=== PATIENT | male | born 1930 | race Caucasian/White ===

== ENCOUNTER 2017-12-29 11:21 | Emergency (ER) | payer OTHER ==
[2017-12-29] MEDS: ASPIRIN 325 MG TAB PO (12:06)
[2017-12-29 12:08] LABS: ADD MAN DIFF? NO
[2017-12-29 12:12] LABS: WHITE BLOOD COUNT 7.7 10^3/ul (4.8-10.8)
[2017-12-29 12:12] LABS: BASOPHIL # 0.1 10^3/ul (0.0-0.1); BASOPHILS % 0.8 % (0.0-2.0); EOSINOPHILS # 0.2 10^3/ul (0.0-0.5); EOSINOPHILS % 2.9 % (0.0-7.0); HEMATOCRIT 38.4 % (42.0-52.0); HEMOGLOBIN 11.4 g/dl (14.0-18.0); LYMPHOCYTES # 1.3 10^3/ul (0.8-2.9); LYMPHOCYTES % 17.1 % (15.0-51.0); MEAN CORPUSCULAR HEMOGLOBIN 24.1 pg (29.0-33.0); MEAN CORPUSCULAR HGB CONC 29.7 g/dl (32.0-37.0); MEAN PLATELET VOLUME 10.5 fl (7.4-10.4); MONOCYTE # 0.6 10^3/ul (0.3-0.9); MONOCYTES % 8.1 % (0.0-11.0); NEUTROPHIL # 5.4 10^3/ul (1.6-7.5); NEUTROPHILS % 70.7 % (39.0-77.0); PLATELET COUNT 250 10^3/UL (140-415); RED BLOOD COUNT 4.74 10^6/ul (4.70-6.10); RED CELL DISTRIBUTION WIDTH 16.9 % (11.5-14.5)
[2017-12-29 12:30] LABS: ANION GAP 11 (8-16); BLOOD UREA NITROGEN 35 mg/dl (7-20); CALCIUM 9.2 mg/dl (8.4-10.2); CARBON DIOXIDE 31 mmol/L (21-31); CHLORIDE 104 mmol/L (97-110); CREATININE 1.11 mg/dl (0.61-1.24); GLUCOSE 112 mg/dl (70-220); POTASSIUM 4.1 mmol/L (3.5-5.1); SODIUM 142 mmol/L (135-144)
[2017-12-29 12:33] LABS: INR 0.99; PROTIME 13.2 Sec (11.9-14.9)
[2017-12-29 12:34] LABS: PARTIAL THROMBOPLASTIN TIME 27.5 Sec (25.0-35.0)
[2017-12-29 12:37] LABS: D-DIMER 1011.14 ng/ml (<460)
[2017-12-29 12:41] LABS: B-TYPE NATRIURETIC PEPTIDE 1860 PG/ML (0-450); TROPONIN-I < 0.012 ng/ml (0.000-0.120)
[2017-12-29] MEDS: SOD CHLORIDE 0.9% 100 ML (14:18)
[2017-12-29] MEDS: IOHEXOL 100 ML (14:18)
[2017-12-29 16:19] LABS: TROPONIN-I < 0.012 ng/ml (0.000-0.120)
== END 2017-12-29 16:48 | disposition home or self-care (01) ==
LOC: E/R 11:21
DX: R07.9 Chest pain, unspecified (principal); I10 Essential (primary) hypertension; E11.9 Type 2 diabetes mellitus without complications; Z79.82 Long term (current) use of aspirin; Z79.84 Long term (current) use of oral hypoglycemic drugs; Z95.0 Presence of cardiac pacemaker; Z98.61 Coronary angioplasty status
CPT/HCPCS: 36415; 71045; 71275; 80048; 83880; 84484; 85025; 85378; 85610; 85730; 93005; 99285-25

== ENCOUNTER 2018-01-26 10:18 | Observation (INO) | payer OTHER ==
[2018-01-26 13:05] LABS: ADD MAN DIFF? NO
[2018-01-26 13:13] LABS: WHITE BLOOD COUNT 8.1 10^3/ul (4.8-10.8)
[2018-01-26 13:13] LABS: BASOPHIL # 0.1 10^3/ul (0.0-0.1); BASOPHILS % 0.6 % (0.0-2.0); EOSINOPHILS # 0.2 10^3/ul (0.0-0.5); EOSINOPHILS % 2.5 % (0.0-7.0); HEMATOCRIT 36.3 % (42.0-52.0); HEMOGLOBIN 10.7 g/dl (14.0-18.0); LYMPHOCYTES # 1.1 10^3/ul (0.8-2.9); LYMPHOCYTES % 14.1 % (15.0-51.0); MEAN CORPUSCULAR HEMOGLOBIN 24.4 pg (29.0-33.0); MEAN CORPUSCULAR HGB CONC 29.5 g/dl (32.0-37.0); MEAN CORPUSCULAR VOLUME 82.7 fl (82.0-101.0); MEAN PLATELET VOLUME 10.2 fl (7.4-10.4); MONOCYTE # 0.7 10^3/ul (0.3-0.9); MONOCYTES % 8.2 % (0.0-11.0); NEUTROPHILS % 74.4 % (39.0-77.0); PLATELET COUNT 226 10^3/UL (140-415); RED BLOOD COUNT 4.39 10^6/ul (4.70-6.10); RED CELL DISTRIBUTION WIDTH 16.8 % (11.5-14.5)
[2018-01-26 13:30] LABS: ANION GAP 10 (8-16); BLOOD UREA NITROGEN 31 mg/dl (7-20); CALCIUM 9.8 mg/dl (8.4-10.2); CARBON DIOXIDE 30 mmol/L (21-31); CHLORIDE 105 mmol/L (97-110); CREATININE 1.09 mg/dl (0.61-1.24); GLUCOSE 113 mg/dl (70-220); SODIUM 141 mmol/L (135-144)
[2018-01-26 13:32] LABS: INR 0.99; PROTIME 13.2 Sec (11.9-14.9)
[2018-01-26 13:33] LABS: PARTIAL THROMBOPLASTIN TIME 28.3 Sec (23.0-35.0)
[2018-01-26 13:42] LABS: B-TYPE NATRIURETIC PEPTIDE 2270 PG/ML (0-450); TROPONIN-I < 0.012 ng/ml (0.000-0.120)
[2018-01-26] MEDS: FUROSEMIDE 20 MG INJ IV ×2 (15:38→17:23)
[2018-01-26] MEDS ORDERED: NACL 0.9% 3 ML SYG IV (16:00)
[2018-01-26] MEDS ORDERED: ONDANSETRON 4 MG INJ IV (16:00)
[2018-01-26] MEDS ORDERED: DOCUSATE SODIUM 100 MG CAP PO (16:00)
[2018-01-26] MEDS ORDERED: ACETAMINOPHEN 325 MG TAB PO (16:00)
[2018-01-26] MEDS ORDERED: ALBUTEROL HFA 8 GM INHALER INH ×2 (16:00→20:00)
[2018-01-26] MEDS ORDERED: GLUCAGON 1 MG INJ IM (16:30)
[2018-01-26] MEDS ORDERED: DEXTROSE 50% 50 ML SYRINGE IV ×2 (16:30)
[2018-01-26] MEDS ORDERED: GLUCOSE GEL 15 GRAM TUBE PO ×2 (16:30)
[2018-01-26] MEDS ORDERED: GLUCOSE GEL 15 GRAM TUBE BUCCAL (16:30)
[2018-01-26] MEDS: METOPROLOL (XL) 25 MG TAB PO (17:03)
[2018-01-26] MEDS: PANTOPRAZOLE (EC) 40 MG TAB PO (17:03)
[2018-01-26] MEDS: LOSARTAN 25 MG TAB PO (17:03)
[2018-01-26] MEDS: CLOPIDOGREL 75 MG TAB PO (17:03)
[2018-01-26] MEDS: INSULIN ASPART [NOVOLOG] 3 ML PEN SC ×2 (18:00→20:27)
[2018-01-26] MEDS: ASPIRIN 81 MG TAB PO (19:03)
[2018-01-26] MEDS: ATORVASTATIN 20 MG TAB PO (20:27)
[2018-01-27] MEDS: ACCU-CHEK XX (02:00)
[2018-01-27] MEDS: PANTOPRAZOLE (EC) 40 MG TAB PO (05:57)
[2018-01-27 07:05] LABS: ANION GAP 10 (8-16); BLOOD UREA NITROGEN 33 mg/dl (7-20); CALCIUM 9.3 mg/dl (8.4-10.2); CARBON DIOXIDE 32 mmol/L (21-31); CHLORIDE 104 mmol/L (97-110); CREATININE 1.07 mg/dl (0.61-1.24); GLUCOSE 103 mg/dl (70-220); POTASSIUM 3.7 mmol/L (3.5-5.1); SODIUM 142 mmol/L (135-144)
[2018-01-27] MEDS: INSULIN ASPART [NOVOLOG] 3 ML PEN SC (07:55)
[2018-01-27] MEDS: ASPIRIN 81 MG TAB PO (08:04)
[2018-01-27] MEDS: CLOPIDOGREL 75 MG TAB PO (08:04)
[2018-01-27] MEDS: LOSARTAN 25 MG TAB PO (08:05)
[2018-01-27] MEDS: METOPROLOL (XL) 25 MG TAB PO (08:05)
[2018-01-27] MEDS: ENOXAPARIN 40 MG/0.4 ML SYG SC (08:50)
[2018-01-27] MEDS: FUROSEMIDE 20 MG INJ IV (09:25)
== END 2018-01-27 11:19 | disposition home or self-care (01) ==
LOC: E/R 10:18 → TEL 14:57
DX: I11.0 Hypertensive heart disease with heart failure (principal); I50.23 Acute on chronic systolic (congestive) heart failure; I25.10 Atherosclerotic heart disease of native coronary artery without angina pectoris; K21.9 Gastro-esophageal reflux disease without esophagitis; E11.9 Type 2 diabetes mellitus without complications; I25.2 Old myocardial infarction; Z79.84 Long term (current) use of oral hypoglycemic drugs; Z79.899 Other long term (current) drug therapy; Z95.5 Presence of coronary angioplasty implant and graft; Z79.82 Long term (current) use of aspirin; Z79.02 Long term (current) use of antithrombotics/antiplatelets
CPT/HCPCS: 36415; 71045; 80048; 82962; 83880; 84484; 85025; 85610; 85730; 93005; 93306; 99285-25; G0378

== ENCOUNTER 2018-10-22 10:01 | Inpatient (IN) | payer OTHER ==
[2018-10-22] MEDS: ALBUTEROL 0.5% (NEB) 2.5 MG/0.5 ML AMP INH (10:26)
[2018-10-22] MEDS: IPRATROPIUM (NEB) 0.5 MG/2.5 ML AMP INH (10:26)
[2018-10-22 11:08] LABS: ADD MAN DIFF? NO
[2018-10-22 11:11] LABS: WHITE BLOOD COUNT 6.6 10^3/ul (4.8-10.8)
[2018-10-22 11:12] LABS: ABNORMAL IP MESSAGE 1; BASOPHILS % 0.5 % (0.0-2.0); EOSINOPHILS # 0.2 10^3/ul (0.0-0.5); EOSINOPHILS % 2.7 % (0.0-7.0); HEMATOCRIT 37.6 % (42.0-52.0); HEMOGLOBIN 10.8 g/dl (14.0-18.0); LYMPHOCYTES # 0.8 10^3/ul (0.8-2.9); LYMPHOCYTES % 12.1 % (15.0-51.0); MEAN CORPUSCULAR HEMOGLOBIN 22.4 pg (29.0-33.0); MEAN CORPUSCULAR HGB CONC 28.7 g/dl (32.0-37.0); MEAN CORPUSCULAR VOLUME 77.8 fl (82.0-101.0); MEAN PLATELET VOLUME 10.7 fl (7.4-10.4); MONOCYTE # 0.8 10^3/ul (0.3-0.9); MONOCYTES % 12.1 % (0.0-11.0); NEUTROPHIL # 4.8 10^3/ul (1.6-7.5); NEUTROPHILS % 72.1 % (39.0-77.0); PLATELET COUNT 228 10^3/UL (140-415); POSITIVE DIFF @See below; RED BLOOD COUNT 4.83 10^6/ul (4.70-6.10); RED CELL DISTRIBUTION WIDTH 17.8 % (11.5-14.5)
[2018-10-22 11:13] LABS: ADD UMIC NO; UR ASCORBIC ACID NEGATIVE (NEGATIVE); UR BILIRUBIN (Dip) NEGATIVE (NEGATIVE); UR BLOOD (Dip) NEGATIVE (NEGATIVE); UR CLARITY SLIGHTLY CLOUDY (CLEAR); UR COLOR YELLOW (YELLOW); UR GLUCOSE (Dip) NEGATIVE (NEGATIVE); UR KETONES (Dip) NEGATIVE (NEGATIVE); UR LEUKOCYTE ESTERASE (Dip) NEGATIVE Leu/ul (NEGATIVE); UR NITRITE (Dip) NEGATIVE (NEGATIVE); UR RBC 0 /HPF (0-5); UR SPECIFIC GRAVITY (Dip) 1.008 (1.003-1.030); UR TOTAL PROTEIN (Dip) NEGATIVE (NEGATIVE); UR UROBILINOGEN (Dip) NEGATIVE (NEGATIVE); UR WBC 0 /HPF (0-5)
[2018-10-22] MEDS: METHYLPREDNISOLONE 125 MG INJ IV (11:17)
[2018-10-22 11:31] LABS: ALANINE AMINOTRANSFERASE 26 IU/L (13-69); ALBUMIN 4.3 g/dl (3.3-4.9); ALBUMIN/GLOBULIN RATIO 1.07; ALKALINE PHOSPHATASE 53 IU/L (42-121); ANION GAP 9 (5-13); ASPARTATE AMINO TRANSFERASE 31 IU/L (15-46); BILIRUBIN,INDIRECT 0.8 mg/dl (0-1.1); BILIRUBIN,TOTAL 0.8 mg/dl (0.2-1.3); BLOOD UREA NITROGEN 37 mg/dl (7-20); CALCIUM 9.3 mg/dl (8.4-10.2); CARBON DIOXIDE 34 mmol/L (21-31); CHLORIDE 97 mmol/L (97-110); CREATINE KINASE 88 IU/L (23-200); CREATININE 1.44 mg/dl (0.61-1.24); GLUCOSE 121 mg/dl (70-220); POTASSIUM 3.4 mmol/L (3.5-5.1); SODIUM 140 mmol/L (135-144); TOTAL PROTEIN 8.3 g/dl (6.1-8.1)
[2018-10-22 11:33] LABS: INR 1.11; PROTIME 14.4 Sec (11.9-14.9); PT RATIO 1.1
[2018-10-22 11:34] LABS: PARTIAL THROMBOPLASTIN TIME 26.6 Sec (23.0-35.0)
[2018-10-22 11:43] LABS: B-TYPE NATRIURETIC PEPTIDE 5070 PG/ML (0-450); CK INDEX 1.5; CK-MB 1.31 ng/ml (0.0-2.4); TROPONIN-I 0.042 ng/ml (0.000-0.120)
[2018-10-22] MEDS ORDERED: ONDANSETRON 4 MG INJ IV ×2 (12:30)
[2018-10-22] MEDS ORDERED: ACETAMINOPHEN 325 MG TAB PO ×2 (12:30)
[2018-10-22] MEDS ORDERED: FUROSEMIDE 40 MG INJ IV (12:30)
[2018-10-22] MEDS: PANTOPRAZOLE (EC) 40 MG TAB PO (14:00)
[2018-10-22] MEDS: METOPROLOL (XL) 25 MG TAB PO (14:00)
[2018-10-22] MEDS: CLOPIDOGREL 75 MG TAB PO (14:00)
[2018-10-22] MEDS: POTASSIUM CHLORIDE (SR) 10 MEQ TAB PO ×2 (14:00→21:46)
[2018-10-23] MEDS: ZOLPIDEM 5 MG TAB PO (01:28)
[2018-10-23] MEDS: FUROSEMIDE 20 MG INJ IV (05:11)
[2018-10-23 06:48] LABS: ANION GAP 9 (5-13); BLOOD UREA NITROGEN 33 mg/dl (7-20); CARBON DIOXIDE 32 mmol/L (21-31); CHLORIDE 99 mmol/L (97-110); CREATININE 1.14 mg/dl (0.61-1.24); GLUCOSE 141 mg/dl (70-220); POTASSIUM 3.9 mmol/L (3.5-5.1); SODIUM 140 mmol/L (135-144)
[2018-10-23] MEDS ORDERED: CLOPIDOGREL 75 MG TAB PO (09:00)
[2018-10-23] MEDS: PANTOPRAZOLE (EC) 40 MG TAB PO (10:02)
[2018-10-23] MEDS: ASPIRIN 81 MG TAB PO (10:02)
[2018-10-23] MEDS: CLOPIDOGREL 75 MG TAB PO (10:02)
[2018-10-23] MEDS: POTASSIUM CHLORIDE (SR) 10 MEQ TAB PO ×2 (10:02→21:19)
[2018-10-23] MEDS: METOPROLOL (XL) 25 MG TAB PO (10:03)
[2018-10-23] MEDS: ALBUTEROL/IPRATROPIUM (NEB) 3 ML AMP HHN ×3 (11:08→21:14)
[2018-10-23] MEDS: AZITHROMYCIN 250 MG TAB PO (13:05)
[2018-10-23] MEDS: predniSONE 20 MG TAB PO (13:05)
[2018-10-23] MEDS: FLUTICASONE 0.05% 16 GM NAS SPRAY NASAL ×2 (13:06→21:19)
[2018-10-24 05:58] LABS: ADD MAN DIFF? NO
[2018-10-24 06:02] LABS: ABNORMAL IP MESSAGE 1; BASOPHILS % 0.1 % (0.0-2.0); HEMATOCRIT 35.7 % (42.0-52.0); HEMOGLOBIN 9.9 g/dl (14.0-18.0); LYMPHOCYTES # 0.7 10^3/ul (0.8-2.9); LYMPHOCYTES % 6.4 % (15.0-51.0); MEAN CORPUSCULAR HEMOGLOBIN 22.3 pg (29.0-33.0); MEAN CORPUSCULAR HGB CONC 27.7 g/dl (32.0-37.0); MEAN CORPUSCULAR VOLUME 80.4 fl (82.0-101.0); MONOCYTE # 0.5 10^3/ul (0.3-0.9); MONOCYTES % 4.5 % (0.0-11.0); NEUTROPHILS % 88.6 % (39.0-77.0); PLATELET COUNT 221 10^3/UL (140-415); POSITIVE DIFF @See below; RED BLOOD COUNT 4.44 10^6/ul (4.70-6.10); RED CELL DISTRIBUTION WIDTH 17.4 % (11.5-14.5)
[2018-10-24 06:02] LABS: WHITE BLOOD COUNT 11.3 10^3/ul (4.8-10.8)
[2018-10-24] MEDS: FUROSEMIDE 40 MG TAB PO (06:11)
[2018-10-24] MEDS: ALBUTEROL/IPRATROPIUM (NEB) 3 ML AMP HHN ×2 (06:35→15:13)
[2018-10-24 06:39] LABS: ANION GAP 5 (5-13); BLOOD UREA NITROGEN 33 mg/dl (7-20); CALCIUM 9.5 mg/dl (8.4-10.2); CARBON DIOXIDE 35 mmol/L (21-31); CHLORIDE 99 mmol/L (97-110); GLUCOSE 140 mg/dl (70-220); POTASSIUM 4.3 mmol/L (3.5-5.1); SODIUM 139 mmol/L (135-144)
[2018-10-24] MEDS: FLUTICASONE 0.05% 16 GM NAS SPRAY NASAL ×2 (08:25→20:17)
[2018-10-24] MEDS: POTASSIUM CHLORIDE (SR) 10 MEQ TAB PO ×2 (08:26→20:17)
[2018-10-24] MEDS: CLOPIDOGREL 75 MG TAB PO (08:26)
[2018-10-24] MEDS: predniSONE 20 MG TAB PO (08:26)
[2018-10-24] MEDS: AZITHROMYCIN 250 MG TAB PO (08:26)
[2018-10-24] MEDS: PANTOPRAZOLE (EC) 40 MG TAB PO (08:26)
[2018-10-24] MEDS: ASPIRIN 81 MG TAB PO (08:27)
[2018-10-24] MEDS: METOPROLOL (XL) 25 MG TAB PO (08:27)
[2018-10-24] MEDS: METHYLPREDNISOLONE 125 MG INJ IV ×2 (13:09→20:17)
[2018-10-24] MEDS: FUROSEMIDE 20 MG INJ IV (18:26)
[2018-10-25] MEDS: METHYLPREDNISOLONE 125 MG INJ IV (03:40)
[2018-10-25] MEDS: FUROSEMIDE 20 MG INJ IV ×2 (05:20→17:02)
[2018-10-25 06:17] LABS: B-TYPE NATRIURETIC PEPTIDE 7530 PG/ML (0-450)
[2018-10-25] MEDS: FLUTICASONE 0.05% 16 GM NAS SPRAY NASAL (08:18)
[2018-10-25] MEDS: PANTOPRAZOLE (EC) 40 MG TAB PO (08:19)
[2018-10-25] MEDS: ASPIRIN 81 MG TAB PO (08:19)
[2018-10-25] MEDS: CLOPIDOGREL 75 MG TAB PO (08:20)
[2018-10-25] MEDS: POTASSIUM CHLORIDE (SR) 10 MEQ TAB PO (08:20)
[2018-10-25] MEDS: AZITHROMYCIN 250 MG TAB PO (08:20)
[2018-10-25] MEDS: METOPROLOL (XL) 50 MG TAB PO (08:20)
[2018-10-25] MEDS ORDERED: METOPROLOL (XL) 50 MG TAB PO (09:00)
[2018-10-25] MEDS: LISINOPRIL 5 MG TAB PO (12:06)
== END 2018-10-25 20:01 | DRG 292 ==
LOC: E/R 10:01 → 6WM 12:02
DX: I11.0 Hypertensive heart disease with heart failure (principal); N17.9 Acute kidney failure, unspecified; I50.43 Acute on chronic combined systolic (congestive) and diastolic (congestive) heart failure; I25.10 Atherosclerotic heart disease of native coronary artery without angina pectoris; Z95.810 Presence of automatic (implantable) cardiac defibrillator; I25.5 Ischemic cardiomyopathy; E78.5 Hyperlipidemia, unspecified; I25.2 Old myocardial infarction; I34.0 Nonrheumatic mitral (valve) insufficiency; J20.9 Acute bronchitis, unspecified
CPT/HCPCS: 71045; 80048; 80053; 81001; 81003; 82550; 82553; 83605; 83880; 84484; 85025; 85610; 85730; 87040-91; 87086; 93005; 93306; 94640; 94644; 94664; 96374; 99217; 99285-25; G0378